=== PATIENT | male | born 1945 | race Caucasian/White ===

== ENCOUNTER → 2016-12-25 | Outpatient (CLI) | payer MEDICARE ==
--- NOTE | 2016-12-25 16:49 | MR ---
MRI brain with and without contrast HISTORY: Falling, dizziness, lightheadedness Multiplanar multisequence and postcontrast images obtained through the brain following 20 cc MultiHan ce IV No comparisons There is no restricted diffusion. There is a partially empty sella. Corpus callosum, cervical medulla ry junction, cerebellopontine angles are normal. There is cortical atrophy. Periventricular white mat ter shows some confluent areas of increased signal on inversion recovery and T2-weighted sequences. N o abnormal enhancement following contrast administration. There are normal vascular flow voids, jamison l vascular enhancement. Inflammatory changes noted within the right mastoid air cells. No hemorrhage or hydrocephalus. Suggestion of some stenosis at C3-4 at the edge of the exam. IMPRESSION: Nonspecific white matter demyelination likely due to age-related chronic small vessel dis ease, age-related atrophy is noted. Correlate for right mastoiditis. No abnormal enhancement to sugge st metastasis. Difficult to exclude spinal stenosis in the upper cervical spine.
== END | disposition home or self-care (01) ==
LOC: RADMRIMAIN 15:03
PROVIDERS: ATTEND Internal Medicine Hematology & Oncology
DX: R26.9 Unspecified abnormalities of gait and mobility (principal); R41.82 Altered mental status, unspecified; C15.9 Malignant neoplasm of esophagus, unspecified
CPT/HCPCS: 70553; A9577

== ENCOUNTER 2017-02-24 13:57 | Emergency (ER) | payer MEDICARE ==
[2017-02-24 14:03] VITALS: RESP 18
--- NOTE | 2017-02-24 15:00 | XR ---
EXAMINATION TYPE: XR abdomen 1V DATE OF EXAM: 02/24/2017 CLINICAL DATA: 71-year-old male reinsertion of PEG tube, pain, PHH COMPARISON: 06/16/2016 FINDINGS: A looped J-tube tube is present at the left mid abdomen. A superior loop shows a small kink. There is opacification of short segment jejunum in the left mid abdomen. No extravasation seen. IMPRESSION: Left-sided J-tube injection shows opacification of a short segment of small bowel. No extravasation s een. Note a mild kink of the superior loop.
--- NOTE | 2017-02-24 15:19 | ED ---
General Adult HPI - General Chief complaint: Recheck/Abnormal Lab/Rx Stated complaint: tube fell out Time Seen by Provider: 02/24/17 14:19 Source: patient, RN notes reviewed Mode of arrival: wheelchair Limitations: no limitations - History of Present Illness Initial comments: 71-year-old male with history of stage IV esophageal cancer presents after accidentally pulling his feeding tube out. Patient's tube was placed approximately 2 years ago. It is a J-tube. Patient stood up while he was connected to his daily feeding and pulled the tube out with the balloon intact. Patient did report some mild but no significant bleeding. Patient does not take anything by mouth he has had his esophagus removed and does not have epiglottitis. No other complaints at this time. - Related Data Home Medications Medication Instructions Recorded Confirmed Cetirizine HCl/Pseudoephedrine 1 tab PEG/G-TUBE QAM 06/14/16 02/24/17 [Zyrtec-D Tablet] Naproxen Sodium [Anaprox] 550 mg PEG/G-TUBE BID PRN 06/14/16 02/24/17 Diphenoxylate HCl/Atropine 1 tab PEG/G-TUBE Q6H PRN 02/24/17 02/24/17 [Lomotil 2.5-0.025 mg Tablet] Metoprolol Oral Melissa 10mg/Ml 25 mg PEG/G-TUBE QAM 02/24/17 02/24/17 Ondansetron [Zofran] 4 mg PEG/G-TUBE Q8HR PRN 02/24/17 02/24/17 Ranitidine Syrup [Zantac Syrup] 150 mg PEG/G-TUBE BID 02/24/17 02/24/17 Zolpidem [Ambien] 10 mg PEG/G-TUBE HS 02/24/17 02/24/17 Allergies Allergy/AdvReac Type Severity Reaction Status Date / Time No Known Allergies Allergy Verified 02/24/17 14:31 Review of Systems ROS Statement: Those systems with pertinent positive or pertinent negative responses have been documented in the HPI. ROS Other: All systems not noted in ROS Statement are negative. Past Medical History Past Medical History: Cancer, GERD/Reflux Additional Past Medical History / Comment(s): esophageal cancer- eiplglottis non fx, paralized vocal cord,lt breast, irregular heartbeat. used to take meds for hypertension -since taken off.rt cataract, ulcer in remaining part of esophagus, divericular disease,. PEG tube.tube feedings osmolite 1.5 shelby . takes no pills by mouth. History of Any Multi-Drug Resistant Organisms: None Reported Past Surgical History: Appendectomy, Tonsillectomy Additional Past Surgical History / Comment(s): left hand ganglion cyst removed.per pts -pt had a lt masectomy, rt upper chest port a cath, egd/ colonoscopy. Esophagectomy, Dilitation & stent placement & removal. PEG tube placement.skin graft to back-at age 3 accidentally scaled by hot water Past Anesthesia/Blood Transfusion Reactions: No Reported Reaction Past Psychological History: Anxiety Smoking Status: Former smoker Past Alcohol Use History: None Reported Past Drug Use History: None Reported General Exam Limitations: no limitations General appearance: alert, in no apparent distress Head exam: Present: atraumatic, normocephalic Eye exam: Present: normal appearance, PERRL ENT exam: Present: normal exam, mucous membranes moist Neck exam: Present: normal inspection, full ROM Respiratory exam: Present: normal lung sounds bilaterally. Absent: respiratory distress Cardiovascular Exam: Present: regular rate, normal rhythm GI/Abdominal exam: Present: soft, other (G-tube stoma clean dry and intact, no active bleeding.). Absent: distended, tenderness Extremities exam: Present: normal inspection, normal capillary refill Neurological exam: Present: alert, oriented X3 Psychiatric exam: Present: normal affect, normal mood Skin exam: Present: warm, dry Course Vital Signs 02/24/17 14:01 Temperature 97.4 F L Pulse Rate 86 Respiratory 18 Rate Blood Pressure 136/60 O2 Sat by Pulse 95 Oximetry Medical Decision Making - Medical Decision Making 71-year-old male presenting after dislodging his J-tube feeding tube. The balloon was deflated and inspected, patient and his spouse requested the same to be reinserted as this has been functioning well and is a "special type. Tube and site are cleansed with chlorhexidine. J-tube is inserted in the emergency department by myself. Patient tolerates the procedure well. X-ray obtained after insertion reveals been contrast in the jejunum with no extravasation. Patient will be discharged home with follow-up with his muck operator and primary care physician. Instructed to return to the emergency department with any issues with a feeding tube. Disposition Clinical Impression: Feeding tube dysfunction Disposition: HOME SELF-CARE Condition: Good Instructions: How to Use and Care for Your PEG Tube (ED) Referrals: Jairo Good MD [Primary Care Provider] - 1-2 days Time of Disposition: 15:17
[2017-02-24 15:47] VITALS: BP 120/87; PULSE 80; TEMP 98
== END 2017-02-24 15:44 | disposition home or self-care (01) ==
LOC: EC 13:57
DX: K94.23 Gastrostomy malfunction (principal); K21.9 Gastro-esophageal reflux disease without esophagitis; I10 Essential (primary) hypertension; F41.9 Anxiety disorder, unspecified; Z85.01 Personal history of malignant neoplasm of esophagus; Z87.891 Personal history of nicotine dependence; Z98.890 Other specified postprocedural states; Z79.899 Other long term (current) drug therapy
CPT/HCPCS: 74000; 99283

== ENCOUNTER 2017-02-24 21:32 | Emergency (ER) | payer MEDICARE ==
[2017-02-24 21:43] VITALS: RESP 18
--- NOTE | 2017-02-25 01:08 | ED ---
General Adult HPI - General Chief complaint: Skin/Abscess/Foreign Body Stated complaint: TUBE FELL OUT AGAIN Time Seen by Provider: 02/24/17 22:20 Source: patient, family, RN notes reviewed, old records reviewed Mode of arrival: ambulatory Limitations: no limitations - History of Present Illness Initial comments: 71-year-old man with history of esophageal cancer status post esophageal resection and J-tube feeding tube placement presents with dislodged feeding tube. Patient was in the emergency department earlier the day and his tube was replaced at that time. Patient's states came out without any specific plan or trauma. Patient denies pain or bleeding. On further investigation and valve that maintains the fluid filled balloon is leaking. - Related Data Home Medications Medication Instructions Recorded Confirmed Cetirizine HCl/Pseudoephedrine 1 tab PEG/G-TUBE QAM 06/14/16 02/24/17 [Zyrtec-D Tablet] Naproxen Sodium [Anaprox] 550 mg PEG/G-TUBE BID PRN 06/14/16 02/24/17 Diphenoxylate HCl/Atropine 1 tab PEG/G-TUBE Q6H PRN 02/24/17 02/24/17 [Lomotil 2.5-0.025 mg Tablet] Metoprolol Oral Melissa 10mg/Ml 25 mg PEG/G-TUBE QAM 02/24/17 02/24/17 Ondansetron [Zofran] 4 mg PEG/G-TUBE Q8HR PRN 02/24/17 02/24/17 Ranitidine Syrup [Zantac Syrup] 150 mg PEG/G-TUBE BID 02/24/17 02/24/17 Zolpidem [Ambien] 10 mg PEG/G-TUBE HS 02/24/17 02/24/17 Allergies Allergy/AdvReac Type Severity Reaction Status Date / Time No Known Allergies Allergy Verified 02/24/17 21:43 Review of Systems ROS Statement: Those systems with pertinent positive or pertinent negative responses have been documented in the HPI. ROS Other: All systems not noted in ROS Statement are negative. Past Medical History Past Medical History: Cancer, GERD/Reflux Additional Past Medical History / Comment(s): esophageal cancer- eiplglottis non fx, paralized vocal cord,lt breast, irregular heartbeat. used to take meds for hypertension -since taken off.rt cataract, ulcer in remaining part of esophagus, divericular disease,. PEG tube.tube feedings osmolite 1.5 shelby . takes no pills by mouth. History of Any Multi-Drug Resistant Organisms: None Reported Past Surgical History: Appendectomy, Tonsillectomy Additional Past Surgical History / Comment(s): left hand ganglion cyst removed.per pts -pt had a lt masectomy, rt upper chest port a cath, egd/ colonoscopy. Esophagectomy, Dilitation & stent placement & removal. PEG tube placement.skin graft to back-at age 3 accidentally scaled by hot water Past Anesthesia/Blood Transfusion Reactions: No Reported Reaction Past Psychological History: Anxiety Smoking Status: Former smoker Past Alcohol Use History: None Reported Past Drug Use History: None Reported General Exam Limitations: no limitations Head exam: Present: atraumatic, normocephalic Eye exam: Present: normal appearance, PERRL ENT exam: Present: normal exam, mucous membranes moist Respiratory exam: Present: normal lung sounds bilaterally. Absent: respiratory distress Cardiovascular Exam: Present: regular rate, normal rhythm GI/Abdominal exam: Present: soft, other (J-tube site is clean and dry and intact no signs of infection). Absent: tenderness Extremities exam: Present: normal capillary refill. Absent: pedal edema Neurological exam: Present: alert, oriented X3 Psychiatric exam: Present: normal affect, normal mood Skin exam: Present: warm, dry Course Vital Signs 02/24/17 21:41 Temperature 98.0 F Pulse Rate 104 H Respiratory 18 Rate Blood Pressure 113/60 O2 Sat by Pulse 94 L Oximetry Medical Decision Making - Medical Decision Making 8-year-old male presenting with dislodged J-tube. Tube was replaced earlier in the day but the valve maintaining the balloon was leaking. There was no 16- Emirati J-tubes available at this institution. There is only 12-Emirati and 22- Emirati. Case was discussed with the patient's general surgeon who recommended putting a 16-Emirati Soto catheter. Soto catheter was placed without difficulty. X-ray with contrast reveals satisfactory placement into the jejunum. Patient will follow up with their surgeon at [facility] for proper J-tube insertion. Disposition Clinical Impression: Jejunostomy tube fell out Disposition: HOME SELF-CARE Instructions: How to Use and Care for Your PEG Tube (ED) Referrals: Jairo Good MD [Primary Care Provider] - 1-2 days Prince Yarbrough MD [Medical Doctor] - 1-2 days Time of Disposition: 01:09
--- NOTE | 2017-02-25 01:19 | XR ---
EXAM: XR Abdomen Complete, 2 or More Views CLINICAL HISTORY: Reason: Pain TECHNIQUE: Frontal supine view of the abdomen/pelvis. COMPARISON: Abdominal film 02/24/2017 at 14:54. FINDINGS: Gastrointestinal tract: Nonobstructive bowel gas pattern. Organs: No organomegaly. Bones/joints: Mild degenerative changes of the spine. Tubes, lines and devices: Left percutaneous jejunostomy tube. Injected contrast opacifying a jejunal loop and ascending colon. Other findings: No suspicious calcifications. IMPRESSION: 1. Left percutaneous jejunostomy tube. Injected contrast opacifying a jejunal loop and ascending colon. 2. Nonobstructive bowel gas pattern.
[2017-02-25 01:31] VITALS: BP 118/66; PULSE 95; TEMP 97.9
== END 2017-02-25 01:31 | disposition home or self-care (01) ==
LOC: EC 21:32
DX: K94.13 Enterostomy malfunction (principal); I10 Essential (primary) hypertension; K21.9 Gastro-esophageal reflux disease without esophagitis; Z87.891 Personal history of nicotine dependence; Z79.899 Other long term (current) drug therapy; Z85.01 Personal history of malignant neoplasm of esophagus; Z85.3 Personal history of malignant neoplasm of breast; Z90.49 Acquired absence of other specified parts of digestive tract; Z90.12 Acquired absence of left breast and nipple
CPT/HCPCS: 74000; 99283; Q9967

== ENCOUNTER 2017-07-08 05:45 | Emergency (ER) | payer MEDICARE ==
[2017-07-08 05:54] VITALS: BP 162/82; PULSE 104; RESP 17; TEMP 97.4
--- NOTE | 2017-07-08 07:15 | ED ---
General Adult HPI - General Chief complaint: Abdominal Pain Stated complaint: J tube replacement Time Seen by Provider: 07/08/17 06:23 Source: patient, family, RN notes reviewed, old records reviewed Mode of arrival: wheelchair Limitations: no limitations - History of Present Illness Initial comments: 72-year-old male with history of esophageal cancer presents with dislodged jejunostomy tube. Patient is well-known to this emergency department. He has had this issue in the past. Patient's states he rolled over while sleeping and pulled the tube out. According to the , the balloon is right at the skin surface. The tube was never completely dislodged. Patient has no other complaints. - Related Data Home Medications Medication Instructions Recorded Confirmed Cetirizine HCl/Pseudoephedrine 1 tab PEG/G-TUBE QAM 06/14/16 02/24/17 [Zyrtec-D Tablet] Naproxen Sodium [Anaprox] 550 mg PEG/G-TUBE BID PRN 06/14/16 02/24/17 Diphenoxylate HCl/Atropine 1 tab PEG/G-TUBE Q6H PRN 02/24/17 02/24/17 [Lomotil 2.5-0.025 mg Tablet] Metoprolol Oral Melissa 10mg/Ml 25 mg PEG/G-TUBE QAM 02/24/17 02/24/17 Ondansetron [Zofran] 4 mg PEG/G-TUBE Q8HR PRN 02/24/17 02/24/17 Ranitidine Syrup [Zantac Syrup] 150 mg PEG/G-TUBE BID 02/24/17 02/24/17 Zolpidem [Ambien] 10 mg PEG/G-TUBE HS 02/24/17 02/24/17 Allergies Allergy/AdvReac Type Severity Reaction Status Date / Time No Known Allergies Allergy Verified 02/24/17 21:43 Review of Systems ROS Statement: Those systems with pertinent positive or pertinent negative responses have been documented in the HPI. ROS Other: All systems not noted in ROS Statement are negative. Past Medical History Past Medical History: Cancer, GERD/Reflux Additional Past Medical History / Comment(s): esophageal cancer- eiplglottis non fx, paralized vocal cord,lt breast, irregular heartbeat. used to take meds for hypertension -since taken off.rt cataract, ulcer in remaining part of esophagus, divericular disease,. PEG tube.tube feedings osmolite 1.5 shelby . takes no pills by mouth. History of Any Multi-Drug Resistant Organisms: None Reported Past Surgical History: Appendectomy, Tonsillectomy Additional Past Surgical History / Comment(s): left hand ganglion cyst removed.per pts -pt had a lt masectomy, rt upper chest port a cath, egd/ colonoscopy. Esophagectomy, Dilitation & stent placement & removal. PEG tube placement.skin graft to back-at age 3 accidentally scaled by hot water Past Anesthesia/Blood Transfusion Reactions: No Reported Reaction Past Psychological History: Anxiety Smoking Status: Former smoker Past Alcohol Use History: None Reported Past Drug Use History: None Reported General Exam Limitations: no limitations General appearance: alert, in no apparent distress Head exam: Present: atraumatic, normocephalic Eye exam: Present: normal appearance, PERRL Respiratory exam: Present: normal lung sounds bilaterally. Absent: respiratory distress Cardiovascular Exam: Present: regular rate, normal rhythm GI/Abdominal exam: Present: soft, other (J-tube with balloon at the surface of the skin, no erythema or signs of infection at the site. No bleeding.). Absent : distended, tenderness Extremities exam: Present: normal inspection, normal capillary refill. Absent: pedal edema Course Vital Signs 07/08/17 05:49 Temperature 97.4 F L Pulse Rate 104 H Respiratory 17 Rate Blood Pressure 162/82 O2 Sat by Pulse 97 Oximetry Medical Decision Making - Medical Decision Making The balloon is deflated, reinserted without difficulty. The J-tube never left the track. Balloon reinflated. Patient's does not wish to have this x- rayed for confirmation. As the tube now left the site of insertion, I do believe there is proper tube placement. She is confident that the tube is in place. She will return with any further issues. Disposition Clinical Impression: Esophageal adenocarcinoma, Jejunostomy tube fell out Disposition: HOME SELF-CARE Condition: Good Instructions: How to Use and Care for Your PEG Tube (ED) Referrals: Jairo Good MD [Primary Care Provider] - 1-2 days Time of Disposition: 07:15
== END 2017-07-08 07:40 | disposition home or self-care (01) ==
LOC: EC 05:45
DX: K94.19 Other complications of enterostomy (principal); C15.9 Malignant neoplasm of esophagus, unspecified; K21.9 Gastro-esophageal reflux disease without esophagitis; F41.9 Anxiety disorder, unspecified; Z87.891 Personal history of nicotine dependence; Z79.899 Other long term (current) drug therapy
CPT/HCPCS: 99284

== ENCOUNTER 2017-07-21 01:58 | Emergency (ER) | payer MEDICARE ==
[2017-07-21 02:17] VITALS: BP 139/63; PULSE 103; RESP 20; TEMP 98.1
--- NOTE | 2017-07-21 02:36 | ED ---
General Adult HPI - General Chief complaint: Abdominal Pain Stated complaint: J tube fell out Time Seen by Provider: 07/21/17 02:18 Source: patient, RN notes reviewed Mode of arrival: wheelchair Limitations: no limitations - History of Present Illness Initial comments: 72 -year-old male presents to the emergency department chief complaint of G- tube issue. Patient states that he had a hard cough and they noticed the G- tube somewhat moved. They state they do not have the right switch to fix it so they are here. They state that they have had no other symptoms with this. He denies any pain or discomfort. He said the J-tube for over 2 years now. They just could not recent fill the balloon with air so they thought that they needed to be seen. Patient denies any recent fever, chills, shortness of breath , chest pain, back pain, abdominal pain, nausea vomiting, numbness or tingling, dysuria or hematuria, constipation or diarrhea, headaches or visual changes, or any other current symptoms. - Related Data Home Medications Medication Instructions Recorded Confirmed Cetirizine HCl/Pseudoephedrine 1 tab PEG/G-TUBE QAM 06/14/16 07/21/17 [Zyrtec-D Tablet] Naproxen Sodium [Anaprox] 550 mg PEG/G-TUBE BID PRN 06/14/16 07/21/17 Diphenoxylate HCl/Atropine 1 tab PEG/G-TUBE Q6H PRN 02/24/17 07/21/17 [Lomotil 2.5-0.025 mg Tablet] Metoprolol Oral Melissa 10mg/Ml 25 mg PEG/G-TUBE QAM 02/24/17 07/21/17 Ondansetron [Zofran] 4 mg PEG/G-TUBE Q8HR PRN 02/24/17 07/21/17 Ranitidine Syrup [Zantac Syrup] 150 mg PEG/G-TUBE BID 02/24/17 07/21/17 Zolpidem [Ambien] 10 mg PEG/G-TUBE HS 02/24/17 07/21/17 Allergies Allergy/AdvReac Type Severity Reaction Status Date / Time No Known Allergies Allergy Verified 02/24/17 21:43 Review of Systems ROS Statement: Those systems with pertinent positive or pertinent negative responses have been documented in the HPI. ROS Other: All systems not noted in ROS Statement are negative. Past Medical History Past Medical History: Cancer, GERD/Reflux Additional Past Medical History / Comment(s): esophageal cancer- eiplglottis non fx, paralized vocal cord,lt breast, irregular heartbeat. used to take meds for hypertension -since taken off.rt cataract, ulcer in remaining part of esophagus, divericular disease,. PEG tube.tube feedings osmolite 1.5 shelby . takes no pills by mouth. History of Any Multi-Drug Resistant Organisms: None Reported Past Surgical History: Appendectomy, Tonsillectomy Additional Past Surgical History / Comment(s): left hand ganglion cyst removed.per pts -pt had a lt masectomy, rt upper chest port a cath, egd/ colonoscopy. Esophagectomy, Dilitation & stent placement & removal. PEG tube placement.skin graft to back-at age 3 accidentally scaled by hot water Past Anesthesia/Blood Transfusion Reactions: No Reported Reaction Past Psychological History: Anxiety Smoking Status: Former smoker Past Alcohol Use History: None Reported Past Drug Use History: None Reported General Exam Limitations: no limitations General appearance: alert, in no apparent distress Eye exam: Present: normal appearance ENT exam: Present: mucous membranes moist Neck exam: Present: normal inspection Respiratory exam: Absent: respiratory distress Cardiovascular Exam: Present: regular rate, normal rhythm GI/Abdominal exam: Present: soft, normal bowel sounds, other. Absent: distended , tenderness, guarding, rebound, rigid Neurological exam: Present: alert, oriented X3 Psychiatric exam: Present: normal affect, normal mood Course Vital Signs 07/21/17 02:14 Temperature 98.1 F Pulse Rate 103 H Respiratory 20 Rate Blood Pressure 139/63 O2 Sat by Pulse 97 Oximetry Procedures - Procedures Initial comment: Patient's J-tube balloon was deflated into milliliters of fluid were extracted. The J-tube was then re-inserted and the balloon was refilled with 8 mL. Patient tolerated well. X-ray does confirm placement. Medical Decision Making - Medical Decision Making 72-year-old male presents to the emergency department with a chief complaint of J-tube issue. This time it does appear to be fixed x-rays reviewed and does appear to show a functioning. At this time we will discharge the patient home. We discussed follow-up return parameters all questions. Patient states that he understood we Review of this plan. All questions have been answered. Patient will be discharged. - Radiology Data Radiology results: report reviewed, image reviewed Disposition Clinical Impression: Jejunostomy tube fell out Disposition: HOME SELF-CARE Condition: Stable Instructions: How to Use and Care for Your PEG Tube (ED) Additional Instructions: Please use medication as discussed. Please follow up with family doctor if symptoms have not improved over the next two days. Please return to the emergency room if your symptoms increase or worsen or for any other concerns. Referrals: Jairo Good MD [Primary Care Provider] - 1-2 days Time of Disposition: 02:56
--- NOTE | 2017-07-21 02:55 | XR ---
EXAMINATION TYPE: XR KUB DATE OF EXAM: 07/21/2017 COMPARISON: 02/25/2017 HISTORY: Check tube placement TECHNIQUE: Single view the contrast was Omnipaque 35 mL. FINDINGS: Some contrast was injected into the jejunostomy tube. Contrast fills a loop of jejunum. The re is no evidence of leakage or extravasation. Bowel gas pattern is normal. There is no sign of pneum operitoneum. IMPRESSION: Jejunostomy tube appears in good position.
== END 2017-07-21 03:05 | disposition home or self-care (01) ==
LOC: EC 01:58
DX: K94.23 Gastrostomy malfunction (principal); K21.9 Gastro-esophageal reflux disease without esophagitis; Z85.01 Personal history of malignant neoplasm of esophagus; F41.9 Anxiety disorder, unspecified; Z87.891 Personal history of nicotine dependence; Z79.899 Other long term (current) drug therapy; Z98.890 Other specified postprocedural states
CPT/HCPCS: 74000; 99284; Q9967

== ENCOUNTER → 2017-09-04 | Outpatient (CLI) | payer MEDICARE ==
--- NOTE | 2017-09-04 15:53 | XR ---
EXAMINATION TYPE: XR chest 2V DATE OF EXAM: 09/04/2017 COMPARISON: 06/19/2016 HISTORY: Esophageal carcinoma. Shortness of breath. TECHNIQUE: Frontal and lateral views of the chest are obtained. FINDINGS: In comparison to the prior exam of 2016 there is complete resolution of the previously see n left pleural effusion. Retrocardiac opacity on the lateral image could represent portions of a ezio darlyn pull-through is performed as surgical clips are seen within the mediastinum. Alternatively this c ould represent focal airspace disease. Interstitium is mildly prominent as is the cardiac silhouette favored to represent mild pulmonary vascular congestion/interstitial edema. Right-sided Mediport is u nchanged from the prior. Multilevel moderate degenerative changes of the thoracic spine are noted. IMPRESSION: 1. Retrocardiac density could relate to gastric pull-through is surgically performed. Correlate with surgical history. Alternatively this could represent focal airspace disease such as atelectasis or pn eumonia. 2. Mild pulmonary vascular congestion/interstitial edema may be on the basis of cardiogenic or noncar diogenic fluid overload.
== END | disposition home or self-care (01) ==
LOC: RADXRMAIN 15:09
PROVIDERS: ATTEND Internal Medicine Hematology & Oncology
DX: C15.5 Malignant neoplasm of lower third of esophagus (principal); R93.1 Abnormal findings on diagnostic imaging of heart and coronary circulation
CPT/HCPCS: 71046